=== PATIENT | female | born 1990 | race Two or more races ===

== ENCOUNTER 2024-05-16 16:57 | Emergency (ER) | payer MEDICAID, SELFPAY ==
[2024-05-16 17:03] VITALS: BP 150/81; PULSE 70; RESP 20; TEMP 36.6; O2SAT 96
--- NOTE | 2024-05-16 17:08 | XR_ITS ---
Examination: Complete OB ultrasound, less than 14 weeks, transabdominal Date and time of exam: May 16, 2024 at 1752 hrs. Indications: Vaginal bleeding today with pelvic cramping Technique: Obstetrical ultrasound images less than 14 weeks performed via transabdominal imaging Findings: Uterus 11.1 x 6.3 x 7.5 cm Empty intrauterine gestational sac 1.8 cm correspondences 6 weeks 5 day gestational age No pole, no cardiac activity Uterine fundal mass 3.9 x 3.5 x 4.5 cm Right ovary obscured by bowel gas Left ovary 4.4 x 2.6 x 2.2 cm arterial flow Impression: Empty intrauterine gestational sac 1.8 cm corresponds to 6 weeks 5 day gestational age Recommend transvaginal pelvic sonography follow-up to better assess for viability
--- NOTE | 2024-05-16 17:09 | EDRME_ITS ---
Rapid Medical Screening Exam [facility] Arrival date/time: 05/16/24 16:57 33-year-old female presents to the emergency department stating that she was told a couple of weeks ago that she was having miscarriage at [place] emergency department patient reports at that time she was told she is approximately 8 weeks patient reports vaginal spotting and pain Chief Complaint: Vaginal Bleeding Time Seen by Provider: 05/16/24 17:00 Vital signs: Vital Signs Temperature 98 F 05/16/24 17:03 Pulse Rate 70 05/16/24 17:03 Respiratory Rate 20 05/16/24 17:03 Blood Pressure 150/81 H 05/16/24 17:03 Pulse Oximetry (%) 96 05/16/24 17:03 Oxygen Delivery Method Room Air 05/16/24 17:03
[2024-05-16 17:38] LABS: Collection Type, Urine Clean Catch
[2024-05-16 17:48] LABS: Basophils % (Auto) 0 % (0-2.5); Eosinophils # (Auto) 0.1 Thou/mm3 (0.0-0.5); Eosinophils % (Auto) 1 % (0-10); Hematocrit 37.1 % (36.0-46.0); Hemoglobin 11.8 g/dL (12.0-16.0); Immature Granulocytes % (Auto) 0 % (0-0); Immature Granulocytes Auto 0.03 Thou/mm3 (0.00-0.00); Lymphocytes # (Auto) 2.9 Thou/mm3 (1.0-4.8); Lymphocytes % (Auto) 34 % (10-50); Mean Corpuscular HGB Conc 31.8 g/dl (31.0-37.0); Mean Corpuscular Hemoglobin 25.7 pg (25.0-35.0); Mean Corpuscular Volume 81 fL (80-100); Monocytes # (Auto) 0.6 Thou/mm3 (0.0-0.8); Monocytes % (Auto) 7 % (0-12); Neutrophils # (Auto) 5.1 Thou/mm3 (1.8-7.7); Neutrophils % (Auto) 59 % (37-80); Nucleated Red Blood Cell % 0 /100 WBC (0); Platelet Count 304 Thou/mm3 (140-440); RDW Standard Deviation 43.6 fL (36.4-46.3); White Blood Count 8.7 Thou/mm3 (3.6-11.0)
[2024-05-16 18:12] LABS: Alanine Aminotransferase 19 U/L (10-49); Albumin, Serum 4.8 gm/dL (3.5-5.0); Albumin/Globulin Ratio 1.7 (1.2-2.2); Alkaline Phosphatase 65 U/L (46-116); Anion Gap 8 (7-16); Aspartate Amino Transferase 18 U/L (0-34); BUN/Creatinine Ratio 23 Ratio (12-20); Bilirubin,Total 0.4 mg/dL (0.3-1.2); Blood Urea Nitrogen 16 mg/dL (9-23); Calcium 9.6 mg/dL (8.3-10.6); Calcium (Corrected) 9.6 mg/dL (8.5-10.1); Carbon Dioxide 24.7 mMol/L (20.0-31.0); Chloride 105 mMol/L (98-107); Creatinine (Component) 0.7 mg/dL (0.6-1.3); Estimated Creatinine Clearance 190.8 mL/min (>60); Globulin 2.9 gm/dL (2.3-3.5); Glucose 91 mg/dL (74-106); Osmolality,Calculated 276 (275-295); Potassium 4.1 mMol/L (3.4-5.1); Sodium 138 mMol/L (136-145); Total Protein 7.7 gm/dL (5.7-8.2); eGFR > 60 See Note
[2024-05-16 18:35] LABS: Beta HCG,Quantitative 17392 mIU/mL (<5.0)
[2024-05-16 18:40] LABS: Bilirubin,Urine Negative (Negative); Blood,Urine Negative (Negative); Clarity,Urine Clear (Clear/Hazy); Color,Urine Lt-Yellow (Lt Yel-Yel); Culture Indicated,Urine Not Indicated; Glucose, Urine Negative (Negative); Ketones,Urine Negative (Negative); Leukocyte Esterase,Urine Negative (Negative); Nitrite,Urine Negative (Negative); Protein,Urine Negative (Neg - Trace); RBC,Urine < 1 /hpf (0-3); Specific Gravity,Urine 1.024 (1.001-1.035); Squamous Epithelial Cell,Urine 1 /hpf (0-5); Urobilinogen,Urine Negative mg/dL (0.0-1.0); WBC,Urine < 1 /hpf (0-5)
--- NOTE | 2024-05-16 19:34 | EDNOTE_ITS ---
ED OB Contraction Preg RMI/HPI General Chief complaint: Vaginal Bleeding Stated complaint: 9WKS , VAGINAL BLEEDING Time Seen by Provider: 05/16/24 17:00 Source: patient Arrival date/time: 05/16/24 16:57 33-year-old female G4, presents emergency department complaining of vagi nal spotting that started early this morning. Patient reports was recently seen at [place] ED for similar symptoms. Patient reports has not established PEDIATRIC CRITICAL CARE NURSE. Mode of arrival: ambulatory Limitations: no limitations RME / HPI RME / HPI Narrative: 05/16/24 16:57 33-year-old female presents to the emergency department stating that she was told a couple of weeks ago that she was having miscarriage at [place] emergency department patient reports at that time she was told she is approximately 8 weeks patient reports vaginal spotting and pain Related Data Allergies Allergy/AdvReac Type Severity Reaction Status Date / Time No Known Allergies Allergy Verified 05/16/24 16:59 Review of Systems Review of Systems Systems Reviewed: All systems reviewed, normal except as documented Constitutional Constitutional: Reports system reviewed and no additional complaints, except as documented, Denies body ache(s), Denies chills and Denies fever(s) Eyes Eyes: Reports system reviewed and no additional complaints, except as documented and Denies change in vision ENT Ears, Nose, Mouth, and Throat: Reports system reviewed and no additional complaints, except as documented, Denies disequilibrium, Denies dizziness, Denies sore throat and Denies vertigo Cardiovascular Cardiovascular: Reports system reviewed and no additional complaints, except as documented, Denies chest pain and Denies dyspnea Respiratory Respiratory: Reports system reviewed and no additional complaints, except as documented, Denies chest congestion, Denies cough and Denies dyspnea Gastrointestinal Gastrointestinal: Reports system reviewed and no additional complaints, except as documented, Denies abdominal pain, Denies nausea and Denies vomiting Genitourinary Genitourinary: Reports abnormal vaginal bleeding Musculoskeletal Musculoskeletal: Reports system reviewed and no additional complaints, except as documented, Denies abnormal gait and Denies arthralgias Integumentary/Breasts Skin/Breast: Reports system reviewed and no additional complaints, except as documented, Denies erythema, Denies rash and Denies wounds Neurologic Neurologic: Reports system reviewed and no additional complaints, except as documented, Denies abnormal gait, Denies disequilibrium, Denies dizziness and Denies vertigo Past Medical History Social History SMOKING STATUS: Never smoker ED Exam General Limitations: Present no limitations General appearance: Present alert and in no apparent distress Head Head exam: Present atraumatic Eye Eye exam: Present normal appearance, PERRL and EOMI ENT ENT exam: Present normal exam, normal oropharynx and mucous membranes moist Neck Neck exam: Present normal inspection, full ROM and trachea midline Chest Chest inspection: Present normal inspection and symmetric chest wall rise Respiratory Respiratory exam: Present normal lung sounds bilaterally Cardiovascular Cardiovascular exam: Present regular rate, normal rhythm and normal heart sounds Abdominal Exam Abdominal exam: Present soft and normal bowel sounds Extremities Exam Extremities exam: Present normal inspection and full ROM Back Exam Back exam: Present normal inspection and full ROM Neurological Exam Neurological exam: Present alert, oriented X3 and CN II-XII intact Psychiatric Psychiatric exam: Present normal affect and normal mood Skin Skin exam: Present warm, dry, intact and normal color Course Quality Measures none Orders Category Date Time Status US OB <= 14 weeks fetus Stat Exams 05/16/24 17:08 Completed ABO/RH Type Stat Lab 05/16/24 17:26 Completed Beta HCG,Quantitative Stat Lab 05/16/24 17:26 Completed CBC Stat Lab 05/16/24 17:26 Completed Comprehensive Metabolic Panel Stat Lab 05/16/24 17:26 Completed UA, C/S IF [Urinalysis, C/S if Indicated] Stat Lab 05/16/24 12:30 Completed Vital Signs Vital signs: Vital Signs Temperature 98 F 05/16/24 17:03 Pulse Rate 70 05/16/24 17:03 Respiratory Rate 20 05/16/24 17:03 Blood Pressure 150/81 H 05/16/24 17:03 Pulse Oximetry (%) 96 05/16/24 17:03 Oxygen Delivery Method Room Air 05/16/24 17:03 96% room air within normal limits Vaginal Bleeding MDM Narrative MDM Narrative: 33-year-old female G4, presents emergency department complaining of vaginal spotting that started early this morning. Patient reports was recently seen at [place] ED for similar symptoms. Patient reports has not established PEDIATRIC CRITICAL CARE NURSE. Patient denies any abdominal pain or pelvic pain. CBC was unremarkable for any leukocytosis. Beta-hCG 17 392 with hemoglobin 11.8. Patient is hemodynamically stable and does not appear toxic. CMP was unremarkable. Ultrasound findings empty intra uterine gestational sac corresponding 6 weeks 5 days. Patient reports previous visit her beta-hCG level was in the 400s but cannot recall exactly. Patient stable for discharge instructed to establish care with PEDIATRIC CRITICAL CARE NURSE to have beta-hCG trend and repeat ultrasound. Patient data External records reviewed:: None Clinical information provided by:: patient Social determinants that could affect healthcare access:: none Patient has the following chronic illnesses:: None How is presenting disease/condition affected by chronic disease/condition?: no chronic disease Evaluation data The following diagnostics were reviewed and interpreted by me:: lab results and radiology exam(s) Lab and/or radiology exams considered but not ordered:: Ordered Interpretation Summary: Interpreted by me Medications / Prescriptions Medications or Prescriptions considered but not ordered:: N/A Medication administrations:: N/A Consultations Consultation(s) initiated? (list below): No Diagnosis Vaginal Bleeding Differential Diagnosis: missed , threatened , dysfunctional uterine bleeding, menometrorrhagia, incomplete and ectopic without intrauterine Most likely diagnosis given after review of the tests above:: Vaginal bleeding affecting early Admission Indicated Admission indicated?: not indicated Admission Request Was there a request for admission?: No Disposition Plan Disposition Plan: Discharge Discharge Attestation Discharge Attestation: The patient and all family members were given an opportunity to ask questions and understood the discharge instructions. Discharge instructions specifically effects, indications for sooner follow up or return to the emergency department, and the expected course of current diagnosis. Patient condition: Stable Discharge Plan Plan Patient Disposition: HOME (Self Care) Disposition Comment: Stable Prescriptions/Referrals Referrals: No Primary/Family,Physician [Primary Care Provider] - In 1 week Problem List Clinical Impression: Vaginal bleeding affecting early Patient/Caregiver Discharge Instructions Discharge Activity: activity as tolerated Education Materials: Bleeding During Early Additional Instructions: Drink plenty of fluids and pelvic rest. Establish care with PEDIATRIC CRITICAL CARE NURSE for repeat ultrasound and beta-hCG trend. Your beta-hCG level today was 17 392. Follow-up with your primary care provider upon discharge. Return to emergency department for any worsening symptoms or as needed. Print Language: Armenian Stand Alone Forms: Jennifer Award Info., Patient Portal Info Letter PA/LOCKSTITCH SHOULDER JOINER Supervising Physician PA/LOCKSTITCH SHOULDER JOINER Supervising Physician: Dr. Fernandez
== END 2024-05-16 20:12 | disposition home or self-care (01) ==
PROVIDERS: Nurse Practitioner Primary Care; Emergency Provider Emergency Medicine
DX: O20.9 Hemorrhage in early pregnancy, unspecified (principal); Z3A.01 Less than 8 weeks gestation of pregnancy
CPT/HCPCS: 36415; 76801; 80053; 81001; 84702; 85025; 86900; 86901; 99284

== ENCOUNTER 2024-05-20 20:06 | Emergency (ER) | payer MEDICAID, SELFPAY ==
[2024-05-20 20:06] VITALS: BMI 61.0
[2024-05-20 20:25] VITALS: BP 145/77; PULSE 79; RESP 20; TEMP 37.1; O2SAT 99; BMI 59.1
--- NOTE | 2024-05-20 20:27 | PD.EDRME ---
Rapid Medical Screening Exam [facility] Arrival date/time: 05/20/24 20:06 33 year old female present to ED for c/o of vag bleeding + I have greeted and performed a focused initial assessment of this patient. A comprehensive ED assessment and evaluation of the patient, analysis of all test results, and completion of the medical decision making process will be conducted by additional ED providers. Chief Complaint: Vaginal Bleeding Time Seen by Provider: 05/20/24 20:13 Vital signs: Vital Signs Temperature 98.7 F 05/20/24 20:25 Pulse Rate 79 05/20/24 20:25 Respiratory Rate 20 05/20/24 20:25 Blood Pressure 145/77 H 05/20/24 20:25 Pulse Oximetry (%) 99 05/20/24 20:25 Oxygen Delivery Method Room Air 05/20/24 20:25
--- NOTE | 2024-05-20 20:28 | XR_ITS ---
Examination: Complete OB ultrasound, less than 14 weeks, transabdominal Date and time of exam: May 20, 2024 2116 hrs. Indications: Pelvic cramping and vaginal bleeding severe today, empty intrauterine gestational sac on sonogram May 16, 2024 Technique: Obstetrical ultrasound images less than 14 weeks performed via transabdominal imaging Findings: Uterus 10.1 x 6.2 x 6.2 cm Intrauterine gestational sac 1.7 cm correspondences 6 weeks 4 days gestational age Sac is abnormally low in position in the uterus No pole, no cardiac activity Right ovary 3.3 x 2.1 x 3.2 cm arterial flow Left ovary 3.4 x 2.6 x 2.9 cm arterial flow Impression: Findings most consistent with spontaneous in progress Recommend continued short-term follow-up transvaginal pelvic sonography
[2024-05-20 20:48] LABS: Collection Type, Urine Voided; Squamous Epithelial Cell,Urine 0 /hpf (0-5); WBC,Urine 0 /hpf (0-5)
[2024-05-20 21:03] LABS: Bacteria,Urine Rare; Bilirubin,Urine Negative (Negative); Blood,Urine 3+ (Negative); Clarity,Urine Clear (Clear/Hazy); Color,Urine Colorless (Lt Yel-Yel); Glucose, Urine Negative (Negative); Ketones,Urine Negative (Negative); Leukocyte Esterase,Urine Negative (Negative); Nitrite,Urine Negative (Negative); PH,Urine 6.5 (5.0-7.0); Protein,Urine Negative (Neg - Trace); RBC,Urine 1354 /hpf (0-3); Urobilinogen,Urine Negative mg/dL (0.0-1.0)
[2024-05-20 21:41] LABS: Basophils % (Auto) 0 % (0-2.5); Eosinophils # (Auto) 0.1 Thou/mm3 (0.0-0.5); Eosinophils % (Auto) 1 % (0-10); Hematocrit 36.7 % (36.0-46.0); Hemoglobin 11.8 g/dL (12.0-16.0); Immature Granulocytes % (Auto) 0 % (0-0); Immature Granulocytes Auto 0.04 Thou/mm3 (0.00-0.00); Lymphocytes # (Auto) 3.6 Thou/mm3 (1.0-4.8); Lymphocytes % (Auto) 36 % (10-50); Mean Corpuscular HGB Conc 32.2 g/dl (31.0-37.0); Mean Corpuscular Hemoglobin 25.5 pg (25.0-35.0); Mean Corpuscular Volume 79 fL (80-100); Monocytes # (Auto) 0.6 Thou/mm3 (0.0-0.8); Monocytes % (Auto) 7 % (0-12); Neutrophils # (Auto) 5.5 Thou/mm3 (1.8-7.7); Neutrophils % (Auto) 56 % (37-80); Nucleated Red Blood Cell % 0 /100 WBC (0); Platelet Count 297 Thou/mm3 (140-440); RDW Standard Deviation 42.9 fL (36.4-46.3); Red Blood Count 4.62 Miln/mm3 (4.00-5.20); White Blood Count 9.9 Thou/mm3 (3.6-11.0)
[2024-05-20 22:01] VITALS: BP 139/79; PULSE 79; RESP 20; TEMP 36.9; O2SAT 99
[2024-05-20 22:35] LABS: Beta HCG,Quantitative 14066 mIU/mL (<5.0)
--- NOTE | 2024-05-20 23:47 | PD.EDVAGBL ---
ED OB Contraction Preg RMI/HPI General Chief complaint: Vaginal Bleeding Stated complaint: VAG BLEEDING Time Seen by Provider: 05/20/24 20:13 Arrival date/time: 05/20/24 20:06 Limitations: no limitations RME / HPI RME / HPI Narrative: 05/20/24 20:06 33 year old female present to ED for c/o of vag bleeding + I have greeted and performed a focused initial assessment of this patient. A comprehensive ED assessment and evaluation of the patient, analysis of all test results, and completion of the medical decision making process will be conducted by additional ED providers. ------ Dr. Bedolla's Main ED Evaluation: 33yo female presents to the ED for a chief complaint of increased vaginal bleeding. Patient states she's been bleeding for the last 5 days, reporting she's noticed an increase in blood clots. She states she passes clots every time she uses the restroom. She states her LMP was 03/06/24. She does not have an OB here in [place]. Patient denies any nausea, vomiting, fever, chills, abdominal pain or any other associated symptoms. No known allergies. Related Data Allergies Allergy/AdvReac Type Severity Reaction Status Date / Time No Known Allergies Allergy Verified 05/20/24 20:09 Review of Systems Review of Systems Systems Reviewed: All systems reviewed, normal except as documented Past Medical History Social History SMOKING STATUS: Never smoker ED Exam General Limitations: Present no limitations General appearance: Present alert and in no apparent distress Head Head exam: Present atraumatic Eye Eye exam: Present normal appearance, PERRL and EOMI ENT ENT exam: Present normal exam, normal oropharynx and mucous membranes moist Neck Neck exam: Present normal inspection, full ROM and trachea midline Chest Chest inspection: Present normal inspection and symmetric chest wall rise Respiratory Respiratory exam: Present normal lung sounds bilaterally Cardiovascular Cardiovascular exam: Present regular rate, normal rhythm and normal heart sounds Abdominal Exam Abdominal exam: Present soft and normal bowel sounds Speculum exam: Present other (dry blood with minimal clotting in the vault; no tissue hanging out of the os; internal os is the size of a fingertip) Extremities Exam Extremities exam: Present normal inspection and full ROM Back Exam Back exam: Present normal inspection and full ROM Neurological Exam Neurological exam: Present alert, oriented X3 and CN II-XII intact Psychiatric Psychiatric exam: Present normal affect and normal mood Skin Skin exam: Present warm, dry, intact and normal color Course Quality Measures none Orders Category Date Time Status US OB <= 14 weeks fetus Stat Exams 05/20/24 20:28 Completed ABO/RH Type Stat Lab 05/20/24 21:05 Completed Beta HCG,Quantitative Stat Lab 05/20/24 21:05 Completed CBC Stat Lab 05/20/24 21:05 Completed UA [Urinalysis] Stat Lab 05/20/24 20:43 Completed Urine Culture Stat Lab 05/20/24 20:43 Completed Vital Signs Vital signs: Vital Signs Temperature 98.7 F 05/20/24 20:25 Pulse Rate 79 05/20/24 20:25 Respiratory Rate 20 05/20/24 20:25 Blood Pressure 145/77 H 05/20/24 20:25 Pulse Oximetry (%) 99 05/20/24 20:25 Oxygen Delivery Method Room Air 05/20/24 20:25 Vaginal Bleeding MDM Narrative MDM Narrative: Patient with bleeding x 1 day likely will pass fetus, the patient states that she gets follow-up in [place] and has moved here in the last 1 month. The patient can follow-up with Dr. Ritchie in the next 1 week. She is aware that if she cannot follow-up with Dr. Kapadia that she should return to the emergency department. Patient data External records reviewed:: [facility] previous records (Per chart review, patient was seen here on 05/16/24 for vaginal bleeding.) Clinical information provided by:: patient Social determinants that could affect healthcare access:: none Patient has the following chronic illnesses:: none How is presenting disease/condition affected by chronic disease/condition?: no chronic disease Evaluation data The following diagnostics were reviewed and interpreted by me:: lab results and radiology exam(s) Lab and/or radiology exams considered but not ordered:: none Interpretation Summary: [place] [address] (which [place] lower compared to 05/16/23 when it was 95821), UA shows 1354 RBCs, according to my interpretation. -------- [facility] Report Signed Patient: ELOISA LUCIANO [facility]. Record#: [id number] Birthdate: 1990 Age/Sex: 33 / F Location: [facility] Attending Dr: Ordering Physician: Garth Cota PA-C Date of Service: 05/20/24 Procedure(s): US OB <= 14 weeks fetus Accession Number(s): [id number] cc: Omi Damon MD; NO PRIMARY/FAMILY,PHYSICIAN; Garth Cota PA-C~ Examination: Complete OB ultrasound, less than 14 weeks, transabdominal Date and time of exam: May 20, 2024 2116 hrs. Indications: Pelvic cramping and vaginal bleeding severe today, empty intrauterine gestational sac on sonogram May 16, 2024 Technique: Obstetrical ultrasound images less than 14 weeks performed via transabdominal imaging Findings: Uterus 10.1 x 6.2 x 6.2 cm Intrauterine gestational sac 1.7 cm correspondences 6 weeks 4 days gestational age Sac is abnormally low in position in the uterus No pole, no cardiac activity Right ovary 3.3 x 2.1 x 3.2 cm arterial flow Left ovary 3.4 x 2.6 x 2.9 cm arterial flow Impression: Findings most consistent with spontaneous in progress Recommend continued short-term follow-up transvaginal pelvic sonography Dictated By: Omi Damon MD Signed By: <Electronically signed by Omi Damon MD in [place]> 05/20/248 Medications / Prescriptions Medications or Prescriptions considered but not ordered:: none Medication administrations:: see above, if any Consultations Consultation(s) initiated? (list below): No Diagnosis Vaginal Bleeding Differential Diagnosis: other (early miscarriage, incomplete miscarriage, doubt ectopic ) Most likely diagnosis given after review of the tests above:: see below Admission Indicated Admission indicated?: not indicated Explain why admission is indicated or not indicated:: Patient is stable for outpatient follow-up. Admission Request Was there a request for admission?: No Disposition Plan Disposition Plan: Discharge Discharge Attestation Discharge Attestation: The patient and all family members were given an opportunity to ask questions and understood the discharge instructions. Discharge instructions specifically effects, indications for sooner follow up or return to the emergency department, and the expected course of current diagnosis. Patient condition: Stable Discharge Plan Plan Patient Disposition: HOME (Self Care) Patient condition on transfer: Stable Prescriptions/Referrals Referrals: Bear Kapadia MD [Physician] - 05/24/24 No Primary/Family,Physician [Primary Care Provider] - In 1 week Problem List Clinical Impression: Vaginal bleeding, Incomplete Patient/Caregiver Discharge Instructions Education Materials: ED Miscarriage, Incomplete Additional Instructions: Please follow-up with Dr. Bhakta next week on Thursday. If you cannot get an appointment then return here to the emergency department for recheck for your hormone hCG level and repeat ultrasound if needed. Return sooner if you are having increasing bleeding, dizzy, you pass out, or any other concerns. Today your quant is approximately 14,000 and you are blood type is positive. Print Language: Icelandic Stand Alone Forms: Jennifer Award Info., Patient Portal Info Letter
[2024-05-20 23:59] VITALS: BP 147/81; PULSE 87; RESP 20; TEMP 36.9; O2SAT 95
[2024-05-21 02:00] VITALS: BP 133/61; PULSE 85; RESP 20; TEMP 36.9; O2SAT 95
== END 2024-05-21 02:57 | disposition home or self-care (01) ==
PROVIDERS: Physician Assistant; Emergency Provider Emergency Medicine
DX: O03.4 Incomplete spontaneous abortion without complication (principal)
CPT/HCPCS: 36415; 76801; 81001; 84702; 85025; 86900; 86901; 87077; 87086; 87186; 99284